=== PATIENT | male | born 1970 | race Caucasian/White ===

== ENCOUNTER 2020-03-04 19:59 | Emergency (ER) | payer BC ==
[2020-03-04] MEDS ORDERED: ACETAMINOPHEN 325 MG TABLET PO ONE (20:23)
--- NOTE | 2020-03-04 20:25 | ER Document Report ---
ED Medical Screen (RME) - General Chief Complaint: Toe Injury Stated Complaint: RIGHT FOOT INJURY Time Seen by Provider: 03/04/20 20:19 Primary Care Provider: DIAMANTE PURVIS NP-C [Primary Care Provider] - Follow up as needed Mode of Arrival: Wheelchair Information source: Patient Notes: HPI; 49-year-old male presents emergency room complaining of pain and swelling to his right great toe. States earlier today at work he dropped a wooden door on his foot while wearing tennis shoes. Has taken 3 doses of ibuprofen with minimal relief. Painful to walk. PE: Alert and oriented x3. Moderate distress noted. Ecchymosis, swelling, tenderness to the right great toe to the lateral aspect of the right midfoot. Neurovascularly intact. Positive right pedal pulse. I have greeted and performed a rapid initial assessment of this patient. A comprehensive ED assessment and evaluation of the patient, analysis of test results and completion of the medical decision making process will be conducted by additional ED providers. I have specifically instructed the patient or family members with the patient to immediately return to any nursing staff should anything change in the patient's condition or with their chief complaint. - Related Data Allergies/Adverse Reactions: No Known Allergies Allergy (Unverified 03/04/20 20:15) Past Medical History - Social History Frequency of alcohol use: None Drug Abuse: None Renal/ Medical History: Reports: Hx Kidney Stones Past Surgical History: Reports: Hx Kidney (Renal Surgery) - Lithrotrypsy Physical Exam - Vital signs Vitals: Temp 98.8 F 03/04/20 19:59 Course - Vital Signs Vital signs: Temp Pulse Resp BP Pulse Ox 98.8 F 84 16 149/93 H 97 03/04/20 20:15 03/04/20 20:15 03/04/20 20:15 03/04/20 20:15 03/04/20 20:15 Doctor's Discharge - Discharge Referrals: DIAMANTE PURVIS NP-C [Primary Care Provider] - Follow up as needed
--- NOTE | 2020-03-04 20:50 | RADIOLOGY REPORT (SQ) ---
CLINICAL INDICATION: injury/pain. Pain post trauma right first toe. TECHNIQUE: 3 view(s) were obtained of the right foot. COMPARISON: None. FINDINGS: An acute comminuted crush fracture is identified of the tuft of the first distal phalanx. No other acute bony injury is seen. Joint spaces are within normal limits for age. Associated soft tissue swelling. IMPRESSION: Acute comminuted crush fracture of the first distal phalanx.
[2020-03-04] MEDS ORDERED: OXYCODONE HCL IR 5 MG TABLET PO ONE (22:07)
--- NOTE | 2020-03-04 22:37 | ER Document Report ---
HPI - HPI Time Seen by Provider: 03/04/20 20:19 Pain Level: 4 Context: Patient is a 49-year-old male who comes emergency department for chief complaint of injury to his right great toe. He states that he was working and he accidentally dropped a large wooden door on his foot while wearing his tennis shoes. He states that he continue to work and take ibuprofen during the day, he has taken 3 dose of ibuprofen with minimal relief. He states that after he took his shoe off he noticed the area was very purple, swollen, and painful. He denies any bleeding or open wounds. He denies any other injuries or any other complaints. He is not on a blood thinner. - CONSTITUTIONAL Constitutional: DENIES: Fever, Chills - REPRODUCTIVE Reproductive: DENIES: : - MUSCULOSKELETAL Musculoskeletal: REPORTS: Extremity pain - DERM Skin Color: Ecchymosis Past Medical History - General Information source: Patient - Social History Smoking Status: Current Every Day Smoker Frequency of alcohol use: None Drug Abuse: None Lives with: Family Family History: Reviewed & Not Pertinent Patient has homicidal ideation: No Renal/ Medical History: Reports: Hx Kidney Stones Past Surgical History: Reports: Hx Kidney (Renal Surgery) - Lithrotrypsy Vertical Provider Document - CONSTITUTIONAL General Appearance: WD/WN, No Apparent Distress - HEENT HEENT: Atraumatic, Normocephalic - NECK Neck: Normal Inspection - RESPIRATORY Respiratory: Breath Sounds Normal, No Respiratory Distress - CARDIOVASCULAR Cardiovascular: Regular Rate, Regular Rhythm - GI/ABDOMEN Gastrointestinal: Abdomen Soft, Abdomen Non-Tender - BACK Back: Normal Inspection - MUSCULOSKELETAL/EXTREMETIES Musculoskeletal/Extremeties: MAEW, FROM, Tender - There is ecchymosis and soft tissue swelling over the right dorsal great toe with some soft tissue swelling extending down to the side of the foot and slightly dorsally of the foot over the first MCP area. Range of motion intact, cap refill and sensation intact. There is actually no discoloration of the nail/nail bed. There is no open wound. Normal [place] pedis. Unremarkable lower extremity otherwise. No other signs of injuries. - NEURO Level of Consciousness: Awake, Alert, Appropriate Motor/Sensory: No Motor Deficit, No Sensory Deficit - DERM Integumentary: Warm, Dry, No Rash Course - Re-evaluation Re-evalutation: Patient with trauma to the right toe, there is ecchymosis and soft tissue swelling, there is no open wound, the nail is preserved with no subungual hematoma. Patient is neurovascularly intact. X-ray does show comminuted crush fracture of the first phalanx, no other concerning findings. Provided with win taping, postop shoe, crutches after discussion of options with patient. Providing pain medication. Discussed importance of orthopedics follow-up for additional management, discussed return precautions. Patient states understanding and agreement with plan. - Vital Signs Vital signs: Temp Pulse Resp BP Pulse Ox 98.8 F 84 16 149/93 H 97 03/04/20 20:15 03/04/20 20:15 03/04/20 20:15 03/04/20 20:15 03/04/20 20:15 Discharge - Discharge Clinical Impression: Closed fracture of toe, phalanx Qualifiers: Encounter type: initial encounter Toe: great toe Phalanx: unspecified phalanx Fracture alignment: nondisplaced Laterality: right Qualified Code(s): S92.404A - Nondisplaced unspecified fracture of right great toe, initial encounter for closed fracture Condition: Stable Disposition: HOME, SELF-CARE Additional Instructions: There is a crush/comminuted fracture of the right great toe. I recommend you elevate your foot and use crutches to get around, use the win taping with the gauze as shown, use the modified shoe. Follow-up with the orthopedics referral, call tomorrow to set this up. Take the pain medication if needed, consider [id number] stool softener to avoid constipation. Return if you worsen including severe worsening swelling or pain, developing bleeding underneath your toenail with severe pain, or any other concerning or worsening symptoms. Prescriptions: Oxycodone HCl/Acetaminophen [Percocet 5-325 mg Tablet] 1 - 2 tab PO TID PRN #15 tablet PRN Reason: Referrals: COLLEEN VILLA MD [ACTIVE STAFF] - Follow up in 3-5 days
[2020-03-04 23:23] VITALS: BP 141/84
== END 2020-03-04 23:24 | disposition home or self-care (01) ==
LOC: ER 19:59
DX: S92.424A Nondisplaced fracture of distal phalanx of right great toe, initial encounter for closed fracture (principal); W20.8XXA Other cause of strike by thrown, projected or falling object, initial encounter; Y99.0 Civilian activity done for income or pay; F17.200 Nicotine dependence, unspecified, uncomplicated
CPT/HCPCS: 99283